=== PATIENT | female | born 1955 | race African-American/Black ===

== ENCOUNTER 2018-10-21 21:21 | Inpatient (IN) | payer OTHER ==
[~2018-10-21] VITALS: Ht 154.9 cm; Wt 48.6 kg
[~2018-10-21 21:21] MED LIST: ZANTAC 150MG T150 MG PO
[2018-10-21 21:24] VITALS: BP 141/86
[2018-10-21] MEDS ORDERED: PERCOCET 10-321 EAC1 PO (21:46)
[2018-10-21] MEDS ORDERED: OXYCONTIN20 M1 PO (21:47)
[2018-10-21 22:52] LABS: ABSOLUTE NEUTROPHILS 3.4 thou/uL (1.4-8.2); BASOPHILS 0.7 % (0.0-2.0); EOSINOPHILS 1.7 % (0.0-3.0); HEMATOCRIT 37.9 % (37.0-47.0); HEMOGLOBIN 13.3 gm/dL (12.0-15.0); LYMPHOCYTES 32.1 % (24.0-44.0); MCH 32.4 pg (26.0-34.0); MCV 92.5 fL (80.0-100.0); MONOCYTES 9.8 % (1.0-8.0); PLATELET COUNT 150 thou/uL (150-400); POLYS 55.7 % (36.0-66.0); RBC 4.09 mil/uL (4.20-5.00); RDW 12.5 % (10.5-14.5); WBC 6.1 thou/uL (4.0-11.0)
[2018-10-21 23:00] LABS: CALCIUM 9.8 mg/dL (8.5-10.1); POTASSIUM 3.3 mmol/L (3.5-5.1)
[2018-10-21 23:09] LABS: ALBUMIN 3.5 g/dL (3.4-5.0); MAGNESIUM 1.7 mg/dL (1.8-2.4); TOTAL BILIRUBIN 0.6 mg/dL (<0.1-1.0); TROPONIN-I 0.49 ng/mL (<0.06)
[2018-10-22 00:33] VITALS: BP 126/91
[2018-10-22 01:11] VITALS: BP 148/77
--- NOTE | 2018-10-22 03:38 | NUR ---
ASSUMED CARE OF PATIENT EMMA 0100 FROM ER. PATIENT ARRIVED TO ROOM 212 WITH TECH. PLACED ON MONITOR AND ADMISSION COMPLETED. PATIENT STATES SHE HAS NOT HAD CHEST PAIN SINCE ARRIVAL TO ER. DENIES N/V, DIZZINESS. FAMILY AT BEDSIDE, WILL TAKE PATIENT MEDICATIONS HOME. PT WANTED TO TAKE HOME NARCOTICS STATING "IF I AM IN PAIN, I WANT TO TAKE MY MEDICINE AND NOT WAIT ON ANYONE." EXPLAINED TO PATIENT THAT ALL MEDICATIONS MUST COME FROM PHYSICIAN ORDERS AND TAKING HOME DOSES IS NOT ALLOWED. PATIENT AGREEABLE AND IS OK WITH MEDS GOING HOME WITH DAUGHTER. CONSENTS SIGNED. PATIENT IS PROGRESSING TOWARD GOALS, WILL CONTINUE TO MONITOR.
[2018-10-22 05:39] VITALS: BP 127/76
[2018-10-22 05:40] LABS: CALCIUM 9.3 mg/dL (8.5-10.1); CREATININE 0.8 mg/dL (0.6-1.0)
[2018-10-22 05:51] LABS: POTASSIUM 4.6 mmol/L (3.5-5.1)
[2018-10-22 05:55] LABS: CHOLESTEROL 137 mg/dL (<200); HDL CHOLESTEROL 47 mg/dL (>40); LDL CHOLESTEROL 81 mg/dL (<100); TC:HDL 2.9 Ratio (Not establshd); TRIGLYCERIDE 48 mg/dL (<150); VLDL 10 mg/dL (<40)
[2018-10-22 05:58] LABS: SERUM ASSESSMENT Clear
[2018-10-22 08:00] VITALS: BP 127/75
--- NOTE | 2018-10-22 11:26 | 2DMMODE ---
[facility] [address] [address] 2 D/M-MODE ECHOCARDIOGRAM Name: STORMY TRIPLETT Room #: 212-P [facility] IN M.R.#: [id number] Admission: 10/21/18 Attend Phys: Yunier Barreto Discharge: Date of : 59 Date of Service: 10/22/18 1126 Report #: [id number] THIS REPORT FOR: //name// APPROVED REPORT Study performed: 10/22/2018 09:36:22 EXAM: Comprehensive 2D, Doppler, and color-flow Echocardiogram Patient Location: In-Patient Room #: 212 Status: routine BSA: 1.39 HR: 76 bpm Rhythm: NSR Other Information Study Quality: Good 2D Dimensions RVDd: 21.68 mm IVSd: 9.37 (7-11mm) LVOT Diam: 20.16 (18-24mm) LVDd: 39.85 mm PWd: 10.30 (7-11mm) Ascending Ao: 28.30 (22-36mm) LVDs: 29.18 (25-40mm) Left Atrium: 33.25 (27-40mm) Aortic Root: 27.48 mm LV Single Plane 4CH: 41.57 % LV Single Plane 2CH: 49.03 % Volumes Left Atrial Volume (Systole) Single Plane 4CH: 30.56 mL Single Plane 2CH: 25.17 mL Aortic Valve AoV Peak Boni.: 0.82 m/s AO Peak Gr.: 2.69 mmHg AO Mean Gr.: 1.28 mmHg AO V2 Mean: 0.52 m/s AO V2 VTI: 15.42 cm Mitral Valve E/A Ratio: 0.7 MV Decel. Time: 138.58 ms MV E Max Bnoi.: 0.50 m/s MV A Boni.: 0.73 m/s [facility] [place] [place] [address] 2 D/M-MODE ECHOCARDIOGRAM Name: STORMY TRIPLETT Room #: 212-P [facility] IN M.R.#: [id number] Admission: 10/21/18 Attend Phys: Yunier Barreto Discharge: Date of : 59 Date of Service: 10/22/18 1126 Report #: [id number] MV PHT: 40.19 ms IVRT: 86.51 ms Pulmonary Valve PV Peak Boni.: 0.60 m/s PV Peak Gr.: 1.45 mmHg Tricuspid Valve TR Peak Boni.: 1.84 m/s TR Peak Gr.: 13.51 mmHg Left Ventricle The left ventricle is normal size. Regional wall motion is grossly normal. There is normal left ventricular wall thickness. Left ventricular normal systolic function. LVEF is 55-60%. Right Ventricle The right ventricle is normal size. The right ventricular systolic function is normal. Atria The left atrium size is normal. The interatrial septum is intact with no evidence for an atrial septal defect. The right atrium size is normal. Aortic Valve The aortic valve is normal in structure. No aortic regurgitation is present. There is no aortic valvular stenosis. Mitral Valve The mitral valve is normal in structure. Trace mitral regurgitation. No evidence of mitral valve stenosis. Tricuspid Valve The tricuspid valve is normal in structure. Trace tricuspid regurgitation. Estimated PAP is 18 mmHg. Pulmonic Valve There is no pulmonic valvular regurgitation. Great Vessels The aortic root is normal in size. IVC is normal in size and collapses >50% with [facility] [address] [place] [address] 2 D/M-MODE ECHOCARDIOGRAM Name: UZIELSTORMY ABRAHAM Room #: 212-P ADM IN M.R.#: [id number] Admission: 10/21/18 Attend Phys: Yunier Barreto Discharge: Date of : 59 Date of Service: 10/22/18 1126 Report #: [id number] inspiration. Pericardium There is no pericardial effusion. <Conclusion> The left ventricle is normal size. There is normal left ventricular wall thickness. LVEF is 55-60%. Left ventricular normal systolic function. The right ventricle is normal size. The left atrium size is normal. The right atrium size is normal. The aortic valve is normal in structure. No aortic regurgitation is present. There is no aortic valvular stenosis. The mitral valve is normal in structure. Trace mitral regurgitation. The tricuspid valve is normal in structure. There is no pericardial effusion. <ELECTRONICALLY SIGNED> By: Alfredo Peres MD 10/22/18 1126 25 25 Alfredo Peres MD /INF
[2018-10-22 12:00] VITALS: BP 115/75
--- NOTE | 2018-10-22 13:43 | EKG ---
[address] [place] [address] ELECTROCARDIOGRAM REPORT Name: STORMY TRIPLETT Room #: 212- ADM IN M.R.#: [id number] Admission: 10/21/18 Attend Phys: Yunier Reyna Discharge: Date of : 59 Report #: [id number] THIS REPORT FOR: //name// [facility] ED Test Date: 2018-10-21 Test Time: 21:32:33 Pat Name: STORMY TRIPLETT Department: Room: [facility] Gender: F Transportation Planning Technician: KIM : 1955 Requested By: Florencio Up Order Number: [id number] MD: Alfredo Peres Measurements Intervals [place] Rate: 86 P: 75 MN: 150 QRS: 6 QRSD: 92 T: -15 QT: 340 QTc: 407 Interpretive Statements Sinus rhythm Probable left atrial enlargement Left ventricular hypertrophy Borderline T abnormalities, inferior leads Compared to ECG 03/12/2013 18:32:44 RSR' in V1 or V2 now present Left ventricular hypertrophy now present T-wave abnormality now present Electronically Signed On 10-22-2018 13:43:12 CREDIT CASHIER by Alfredo Peres [email or web address] <ELECTRONICALLY SIGNED> By: Alfredo Peres MD 10/22/18 1343 31 31 Alfredo Peres MD /EPI
--- NOTE | 2018-10-22 13:46 | EKG ---
[address] [place] [address] ELECTROCARDIOGRAM REPORT Name: STORMY TRIPLETT Room #: 212-P ADM IN M.R.#: [id number] Admission: 10/21/18 Attend Phys: Yunier Reyna Discharge: Date of : 59 Report #: [id number] THIS REPORT FOR: //name// [facility] Test Date: 2018-10-22 Test Time: 07:25:54 Pat Name: STORMY TRIPLETT Department: Room: 212 P Gender: F Driver Salesman: melissa : 1955 Requested By: Effie Daigle Order Number: [id number] MD: Alfredo Peres Measurements Intervals [place] Rate: 76 P: 71 [place]: 151 QRS: 20 QRSD: 82 T: 19 QT: 395 QTc: 445 Interpretive Statements Sinus rhythm Consider left ventricular hypertrophy Compared to ECG 03/12/2013 18:32:44 Similar to prior. Electronically Signed On 10-22-2018 13:45:58 ELECTRONIC HEALTH RECORDS SPECIALIST by Alfredo Peres [email or web address] <ELECTRONICALLY SIGNED> By: Alfredo Peres MD 10/22/18 1345 4 4 Alfredo Peres MD /CALI
--- NOTE | 2018-10-22 17:27 | NUR ---
PT ALERT AND ORIENTED X4. DENIES CP TODAY. COMPLAINING OF CHRONIC RIGHT HIP PAIN. GIVEN PAIN MEDICATION AND REPORTS GOOD RELIEF OF PAIN. AMBULATING IN ROOM WITH STEADY GAIT. PLAN FOR CATH ON WEDNESDAY. PT'S FAMILY AT BEDSIDE TODAY. WILL CONTINUE TO MONITOR PATIENT.
[2018-10-22 19:55] VITALS: BP 112/78
[2018-10-23 04:03] VITALS: BP 92/61
[2018-10-23 05:46] LABS: HEMATOCRIT 42.4 % (37.0-47.0); MCHC 33.1 g/dL (28.0-37.0); MCV 93.7 fL (80.0-100.0); RBC 4.53 mil/uL (4.20-5.00); RDW 12.7 % (10.5-14.5); WBC 5.7 thou/uL (4.0-11.0)
[2018-10-23 06:07] LABS: CALCIUM 9.1 mg/dL (8.5-10.1); CREATININE 0.9 mg/dL (0.6-1.0); MAGNESIUM 2.3 mg/dL (1.8-2.4); POTASSIUM 4.7 mmol/L (3.5-5.1); TROPONIN-I 0.48 ng/mL (<0.06)
[2018-10-23 08:00] VITALS: BP 133/65
[2018-10-23 12:53] VITALS: BP 106/67
[2018-10-23 18:00] VITALS: BP 147/61
--- NOTE | 2018-10-23 18:10 | NUR ---
END OF SHIFT NOTE: PATIENT ALERT AND ORIENTED X4, PAIN MILDLY CONTROLLED WITH MEDICATION. ON ROOM AIR. NORMAL SINUS RHYTHM ON LITHOGRAPH PRESS OPERATOR. UP INDEPENDENTLY. PATIENT UPDATED ON THE PLAN OF CARE. CONSENT SIGNED FOR CATH IN THE AM. NO SIGNS OF ACUTE DISTRESS NOTED AT THIS TIME. WILL CONTINUE TO MONITOR.
[2018-10-23 20:24] VITALS: BP 112/66
[2018-10-24] VITALS (12 sets, daily range): BP systolic 88–136; BP diastolic 51–88
--- NOTE | 2018-10-24 03:50 | NUR ---
PT ALERT AND ORIENTED. DENIES CHEST PAIN NAUSEA, V/D. HIP PAIN CONTROLLED WITH SCHEDULED MEDICATIONS. BEEN NPO SINCE MIDNIGHT. SCHEDULED CARDIAC CATH THIS MORNING. WILL CONTINUE TO MONITOR.
[2018-10-24 04:10] LABS: HEMATOCRIT 38.8 % (37.0-47.0); HEMOGLOBIN 12.8 gm/dL (12.0-15.0); MCH 30.9 pg (26.0-34.0); MCHC 33.1 g/dL (28.0-37.0); MCV 93.4 fL (80.0-100.0); RBC 4.16 mil/uL (4.20-5.00); RDW 12.7 % (10.5-14.5); WBC 9.2 thou/uL (4.0-11.0)
[2018-10-24 04:39] LABS: ALBUMIN 3.4 g/dL (3.4-5.0); CREATININE 0.8 mg/dL (0.6-1.0); MAGNESIUM 2.2 mg/dL (1.8-2.4); POTASSIUM 4.4 mmol/L (3.5-5.1); TOTAL BILIRUBIN 0.8 mg/dL (<0.1-1.0)
--- NOTE | 2018-10-24 08:27 | NUR ---
Pt with low BMI of 18 identified. Admitted with NSTEMI, hx +tobacco use. Pt NPO for cardiac cath procedure today. Poor appetite was indicated on admit nutrition screening. Will follow up 10/25 for further nutrition evaluation and intervention following cath.
--- NOTE | 2018-10-24 08:53 | EKG ---
[address] [place] [address] ELECTROCARDIOGRAM REPORT Name: STORMY TRIPLETT Room #: 212-P ADM IN M.R.#: [id number] Admission: 10/21/18 Attend Phys: Gary Thomas MD Discharge: Date of : 59 Report #: [id number] THIS REPORT FOR: //name// [facility] Test Date: 2018-10-24 Test Time: 07:05:01 Pat Name: STORMY TRIPLETT Department: Room: 212 Gender: F Night Custodian: : 1955 Requested By: Martha Villalobos Order Number: [id number] MD: Walter Leung Measurements Intervals [place] Rate: 84 P: 83 [place]: 157 QRS: 19 QRSD: 75 T: -20 QT: 355 QTc: 420 Interpretive Statements Sinus rhythm RSR' in V1 or V2, right VCD Borderline T abnormalities, inferior leads Compared to ECG 10/22/2018 07:25:54 no significant change was found Electronically Signed On 10-24-2018 8:53:52 GRAPHICS MANAGER by Walter Leung [email or web address] <ELECTRONICALLY SIGNED> By: Walter Leung MD, [facility] 10/24/18 0853 0705 Walter Leung MD, [facility] /EPI
--- NOTE | 2018-10-24 14:57 | NUR ---
PT HAD RT GROIN CARDIAC CATH TODAY WITH STENT X 1 PLACEMENT TO RCA. DRESSING TO RT GROIN C/D/I, PULSES AND SENSATION INTACT. PT C/O OCCASSIONAL RT HIP AND ABD PAIN. SCHEDULED PAIN MED IS EFFECTIVE. PT TOLERATING PO DIET BUT HAS POOR APPETITE. PT COMPLETED BEDREST AND IS ABLE TO BE UP AD TSERING IN ROOM. FAMILY AT BEDSIDE AND EDUCATED AND UPDATED ON POC GOALS.
[2018-10-24 15:06] LABS: HIV ANTIBODY Non Reactive (Non Reactive)
--- NOTE | 2018-10-24 16:25 | CATHLAB ---
[place] [address] [place] [address] INVASIVE PROCEDURE REPORT Name: STORMY TRIPLETT Room #: 212-P [facility] IN ..#: [id number] Admission: 10/21/18 Attend Phys: Gary Thomas, Discharge: Date of : 59 Date of Service: 10/24/18 1625 Report #: [id number] THIS REPORT FOR: //name// APPROVED REPORT Study performed: 10/24/2018 07:41:22 Patient Details Patient Status: In-Patient Room #: The patient is a 63 year-old female Event Personnel Rhys Louie [employer] Machine Operator, Prem Alcaraz RN, Danielle Le Mahmood, Amber Scrub, Sandifer, David Monitor Procedures Performed Left Heart Cath w/or w/o Coronaries [id number] LHC, BMS TO MID RCA Indication Non-STEMI , Chest pain Risk Factors Hypercholesterolemia, Tobacco History () Procedure Narrative The Right Groin^ was infiltrated with subcutaneous anesthesia. A PINNACLE 4FR Sheath #[id number] sheath was inserted into the RFA^. Coronary angiography was performed using coronary diagnostic catheters. The right coronary system was accessed and visualized with a JR4 catheter. The left coronary system was accessed and visualized with a JL4 catheter. The left ventricle was accessed and visualized with a PIGTAIL catheter. Left ventricular/Aortic Valve gradient assessed via catheter pullback. Left ventriculogram was performed in 30 degree projection. SHEATH SUTHERED IN PLACE Intraoperative Conscious Sedation Sedation start time: Case end Time: 9.11 Fluoro Time: 7.32 minutes Dose: DAP 1816 cGycm2 230 mGy Contrast Type and Amount: Omnipaque [address] [facility] [address] [place] [address] INVASIVE PROCEDURE REPORT Name: STORMY TRIPLETT Room #: 212-P [facility] IN ..#: [id number] Admission: 10/21/18 Attend Phys: Gary Thomas, Discharge: Date of : 59 Date of Service: 10/24/18 1625 Report #: [id number] Coronary Angiography The patient's coronary anatomy is right dominant. Diagnostic Cath Left Main This is a patent vessel, with no flow-limiting lesions. LAD This is a moderate size caliber vessel, traversing the anterior wall and wrapping around the apex. There are minimal luminal irregularities noted in the mid segment. Circumflex There is mild plaquing in the proximal segment, 10%. OM1 There is a moderate size caliber vessel, with mild plaquing in the proximal segment, 10%. Right Coronary This is a dominant vessel with a severe stenosis in the mid segment, 95%. R PDA This is a patent vessel, with no flow-limiting lesions. RPLV This is a patent vessel, with no flow-limiting lesions. Left Ventriculography The left ventricle is normal in size with normal contractility. The left ventricular ejection fraction is estimated to be 50-55%. Hemodynamics The aortic pressure is 116/64 mmHg with a mean of 89 mmHg. The left ventricular pressure is 131/11 mmHg with a mean of mmHg. The left ventricular end diastolic pressure is 20 mmHg. There was no gradient across the aortic valve upon pullback. Pullback from the left ventricle to the aorta revealed no gradient across the aortic valve. PCI Technique Lesion Percutaneous coronary intervention was performed on the mid right coronary artery. The lesion stenosis prior to intervention was 95% with EBONY 3 flow. A JR4 Guide Catheter was used to engage the ostium. A LUGE Interventional Guidewire was used to cross the lesion. BALLOON DILATION A Balloon catheter 2.5X12 EUPHORAA was inserted and inflated up to 8atm for 14seconds. Additional Inflation: 10atm for 16seconds. [facility] [address] [place] [address] INVASIVE PROCEDURE REPORT Name: UZIELSTORMY LEIGH Room #: 212-P [facility]#: [id number] Admission: 10/21/18 Attend Phys: Gary Thomas, Discharge: Date of : 59 Date of Service: 10/24/18 1625 Report #: [id number] STENT DEPLOYMENT A bare metal stent 2.75X14 INTEGRITY was inserted and inflated up to 12atm for 18seconds. Final angiography reveals 0 % stenosis with EBONY 3 flow. Conclusion 1. Successful insertion of a bare metal stent into the mid segment of a dominant RCA. 2. 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 3. Normal LV systolic function. 4. Recommend dual antiplatelet therapy and aggressive risk factor management including tobacco cessation. <ELECTRONICALLY SIGNED> By: Rhys Louie MD 10/24/18 1625 1625 1625 Rhys Louie MD /INF
--- NOTE | 2018-10-24 16:48 | EKG ---
[address] [place] [address] ELECTROCARDIOGRAM REPORT Name: UZIELSTORMY Room #: 212- ADM IN M.R.#: [id number] Admission: 10/21/18 Attend Phys: Gary Thomas MD Discharge: Date of : 59 Report #: [id number] THIS REPORT FOR: //name// [facility] Test Date: 2018-10-24 Test Time: 09:43:01 Pat Name: STORMY TRIPLETT Department: Room: 212 Gender: F Social Science Teacher: Jamir BERGER : 1955 Requested By: Rhys Louie Order Number: [id number] MD: Walter Leung Measurements Intervals [place] Rate: 65 P: 79 MD: 165 QRS: 60 QRSD: 76 T: -16 QT: 379 QTc: 394 Interpretive Statements Sinus rhythm RSR' in V1 or V2, probably normal variant Consider early repolarization Compared to ECG 10/24/2018 07:05:01 No significant change was found Electronically Signed On 10-24-2018 16:48:47 RAILROAD WHEELS AND AXLES INSPECTOR by Walter Leung [email or web address] <ELECTRONICALLY SIGNED> By: Walter Leung MD, [facility] 10/24/18 1648 0943 0943 Walter Leung MD, [facility] /EPI
[2018-10-25 04:40] LABS: ALBUMIN 3.6 g/dL (3.4-5.0); CALCIUM 9.2 mg/dL (8.5-10.1); CREATININE 0.8 mg/dL (0.6-1.0); TOTAL BILIRUBIN 0.6 mg/dL (<0.1-1.0); TOTAL PROTEIN 7.7 g/dL (6.4-8.2); TROPONIN-I 0.15 ng/mL (<0.06)
[2018-10-25 04:46] LABS: HEMATOCRIT 41.5 % (37.0-47.0); HEMOGLOBIN 13.5 gm/dL (12.0-15.0); MCH 30.8 pg (26.0-34.0); MCHC 32.5 g/dL (28.0-37.0); MCV 94.5 fL (80.0-100.0); RBC 4.39 mil/uL (4.20-5.00); RDW 12.6 % (10.5-14.5); WBC 5.2 thou/uL (4.0-11.0)
[2018-10-25 05:12] VITALS: BP 123/71
--- NOTE | 2018-10-25 06:17 | NUR ---
PT POST CARDIAC CATH STENTTO THE RCA. RIGHT GROING C/D/I. PAIN (ARTHITIS) IN THE RIGHT HIP CONTROLLED WITH SCHEDULED MEDS. OTHER ASSESSMENTS DOCUMENTED. POSSIBLE DC HOME TODAY,.. WILL CONTINUE TO MONITOR.
[2018-10-25 08:00] VITALS: BP 107/67
--- NOTE | 2018-10-25 08:21 | EKG ---
[address] [address] ELECTROCARDIOGRAM REPORT Name: STORMY TRIPLETT Room #: 212- ADM IN M.R.#: [id number] Admission: 10/21/18 Attend Phys: Gary Thomas MD Discharge: Date of : 59 Report #: [id number] THIS REPORT FOR: //name// [facility] Test Date: 2018-10-25 Test Time: 07:41:22 Pat Name: STORMY TRIPLETT Department: Room: 212 Gender: F Graduate Assistant: ERASMO : 1955 Requested By: Rhys Louie Order Number: [id number] MD: Walter Leung Measurements Intervals [place] Rate: 70 P: 73 NV: 169 QRS: 15 QRSD: 88 T: -23 QT: 378 QTc: 408 Interpretive Statements Sinus rhythm RSR' in V1 or V2, probably normal variant Borderline repolarization abnormality Compared to ECG 10/24/2018 09:43:01 No significant changes Electronically Signed On 10-25-2018 8:21:47 SUPERVISOR SHED WORKERS by Walter Leung [email or web address] <ELECTRONICALLY SIGNED> By: Walter Leung MD, [facility] 10/25/18 0821 0741 Walter Leung MD, [facility] /EPI
[2018-10-25] MEDS ORDERED: PLAVIX 75 MG TA75 M1 PO (10:23)
[2018-10-25] MEDS ORDERED: LIPITOR 20 MG T20 M1 PO (10:23)
[2018-10-25] MEDS ORDERED: TRI-BUFFERED A325 M1 PO (10:23)
[2018-10-25] MEDS ORDERED: TOPROL XL25 MG PO (10:23)
[2018-10-25 10:30] VITALS: BP 107/67
[2018-10-25] MEDS ORDERED: NICOTINE TRANSD21 M1 TRANSDERM (11:00)
--- NOTE | 2018-10-25 11:20 | NUR ---
ASSUMED CARE OF PT AT 0700 THIS SHIFT. PT HAS BEEN COOPERATIVE, HAS HAD CHRONIC ARTHRITIS PAIN. PT IS A CURRENT SMOKER, DID NOT WANT HER NICOTINE PATCH THIS MORNING WITH THE INTENSION TO CONTINUE SMOKING WHEN DISCHARGED OUT OF HOSPITAL. PT EDUCATION WAS PROVIDED, ADVISED NOT TO SMOKE WITH 24 HOURS OF TAKING OFF NICOTINE PATCH - PER FLORINA LIM'S INSTRUCTIONS. PT HAS BEEN FEELING GOOD THIS SHIFT, PT HAS BEEN READY TO GO HOME. PLAN OF CARE IS TO DISCHARGE PT THIS SHIFT.
[2018-10-25] MEDS ORDERED: WORK EXCUSE ×2 (11:25→11:26)
[2018-10-25 11:46] VITALS: BP 107/67
== END 2018-10-25 11:34 | disposition home or self-care (01) | DRG 248 ==
LOC: ER 21:21 → 2N 23:54 → EROBS 23:54 → 2N 10-22 01:54 → ENTRNSPT 10-25 11:18 → EDTRNSPTSTS 10-25 11:21 → 2N 10-25 11:34
PROVIDERS: Emergency Medicine; Internal Medicine Cardiovascular Disease; Nurse Practitioner Acute Care; ADMIT Internal Medicine
PROC: 4A023N7 Measurement of Cardiac Sampling and Pressure, Left Heart, Percutaneous Approach (ICD-10-PCS; principal; 2018-10-24)
PROC: B2151ZZ Fluoroscopy of Left Heart using Low Osmolar Contrast (ICD-10-PCS; principal; 2018-10-24)
PROC: 02703DZ Dilation of Coronary Artery, One Artery with Intraluminal Device, Percutaneous Approach (ICD-10-PCS; principal; 2018-10-24)
PROC: B2111ZZ Fluoroscopy of Multiple Coronary Arteries using Low Osmolar Contrast (ICD-10-PCS; principal; 2018-10-24)
DX: I21.4 Non-ST elevation (NSTEMI) myocardial infarction (principal); E43 Unspecified severe protein-calorie malnutrition; R64 Cachexia; M19.90 Unspecified osteoarthritis, unspecified site; F17.210 Nicotine dependence, cigarettes, uncomplicated; E87.6 Hypokalemia; I25.10 Atherosclerotic heart disease of native coronary artery without angina pectoris; G89.29 Other chronic pain; E83.42 Hypomagnesemia; F12.10 Cannabis abuse, uncomplicated; E78.5 Hyperlipidemia, unspecified; I10 Essential (primary) hypertension; Z71.6 Tobacco abuse counseling; Z68.20 Body mass index [BMI] 20.0-20.9, adult; Z79.899 Other long term (current) drug therapy; Z80.0 Family history of malignant neoplasm of digestive organs; Z82.49 Family history of ischemic heart disease and other diseases of the circulatory system
CPT/HCPCS: 10081

== ENCOUNTER 2019-01-24 21:47 | Emergency (ER) | payer OTHER ==
[~2019-01-24] VITALS: Ht 154.9 cm; Wt 44.9 kg
[~2019-01-24 21:47] MED LIST changes: +LIPITOR 20 MG T20 M1 PO; +NICOTINE TRANSD21 M1 TRANSDERM; +OXYCONTIN20 M1 PO; +PERCOCET 10-321 EAC1 PO; +PLAVIX 75 MG TA75 M1 PO; +TOPROL XL25 MG PO; +TRI-BUFFERED A325 M1 PO; +WORK EXCUSE
[2019-01-24 22:24] LABS: ABSOLUTE NEUTROPHILS 2.3 thou/uL (1.4-8.2); EOSINOPHILS 2.6 % (0.0-3.0); HEMATOCRIT 40.2 % (37.0-47.0); HEMOGLOBIN 13.8 gm/dL (12.0-15.0); LYMPHOCYTES 54.2 % (24.0-44.0); MCH 31.9 pg (26.0-34.0); MCHC 34.2 g/dL (28.0-37.0); MCV 93.3 fL (80.0-100.0); MONOCYTES 8.3 % (1.0-8.0); PLATELET COUNT 188 thou/uL (150-400); POLYS 33.9 % (36.0-66.0); RBC 4.31 mil/uL (4.20-5.00); RDW 13.4 % (10.5-14.5); WBC 6.7 thou/uL (4.0-11.0)
[2019-01-24 22:33] LABS: ANION GAP 3 mmol/L (7-16); BUN 6 mg/dL (7-18); CALCIUM 8.7 mg/dL (8.5-10.1); CHLORIDE 98 mmol/L (98-107); CO2 33 mmol/L (21-32); CREATININE 0.7 mg/dL (0.6-1.0); GLUCOSE 113 mg/dL (74-106); POTASSIUM 3.8 mmol/L (3.5-5.1); SODIUM 134 mmol/L (136-145)
[2019-01-24 22:42] LABS: TROPONIN-I <0.06 ng/mL (<0.06)
[2019-01-24] MEDS ORDERED: ALEVE220 MG PO (23:38)
[2019-01-25 00:02] VITALS: BP 134/85
--- NOTE | 2019-01-25 08:00 | EKG ---
[address] [address] ELECTROCARDIOGRAM REPORT Name: STORMY TRIPLETT [facility] [id number] ������������������ Admission: 01/24/19 ������������������ Attend Phys: Discharge: 01/25/19 ������������������ Date of : 59 Report #: [id number] ����������������������������������������������������������������� [id number] THIS REPORT FOR: //name// [facility] ED Test Date: 2019-01-24 Test Time: 22:02:57 Pat Name: STORMY TRIPLETT Department: Room: Gender: F Director Of Business Operations: : 1955 Requested By: Rhett Blue Order Number: [id number] MD: Alfredo Peres Measurements Intervals [place] Rate: 83 P: 70 TN: 155 QRS: 27 QRSD: 73 T: 47 QT: 345 QTc: 406 Interpretive Statements Sinus rhythm Probable left atrial enlargement RSR' in V1 or V2, probably normal variant Left ventricular hypertrophy Compared to ECG 10/25/2018 07:41:22 Left ventricular hypertrophy now present Electronically Signed On 01-25-2019 8:00:15 CDT by Alfredo Peres [email or web address] ��������������������������������������������� <ELECTRONICALLY SIGNED> ���������������������������������������� By: Alfredo Peres MD ��������������������������������������������� 01/25/19799 01 01 Alfredo Peres MD /[facility]
== END 2019-01-25 00:03 | disposition home or self-care (01) ==
LOC: ER 21:47
PROVIDERS: Emergency Medicine
DX: R07.89 Other chest pain (principal); M19.90 Unspecified osteoarthritis, unspecified site; F17.210 Nicotine dependence, cigarettes, uncomplicated

== ENCOUNTER 2019-11-28 19:55 | Emergency (ER) | payer OTHER ==
[~2019-11-28] VITALS: Ht 154.9 cm; Wt 44.9 kg
[~2019-11-28 19:55] MED LIST changes: +ALEVE220 MG PO
[2019-11-28] MEDS ORDERED: PROAIR HFA8.5 GM INH (21:19)
[2019-11-28] MEDS ORDERED: BENZONATATE200 MG PO (21:19)
[2019-11-28 21:21] VITALS: BP 138/78
== END 2019-11-28 21:27 | disposition home or self-care (01) ==
LOC: ER 19:55
DX: J20.9 Acute bronchitis, unspecified (principal); M19.90 Unspecified osteoarthritis, unspecified site; I25.2 Old myocardial infarction; F17.210 Nicotine dependence, cigarettes, uncomplicated; Z98.61 Coronary angioplasty status; Z79.82 Long term (current) use of aspirin